=== PATIENT | female | born 1985 | race Caucasian/White ===

== ENCOUNTER 2017-04-26 11:19 | Emergency (ER) | payer OTHER ==
[2017-04-26] MEDS: LORAZEPAM 0.5 MG TAB PO (12:46)
== END 2017-04-26 13:34 | disposition home or self-care (01) ==
LOC: FTE 11:19
DX: F41.0 Panic disorder [episodic paroxysmal anxiety] (principal); R07.9 Chest pain, unspecified
CPT/HCPCS: 71045; 93005; 99284-25

== ENCOUNTER 2017-09-12 16:56 | Emergency (ER) | payer OTHER ==
[2017-09-12] MEDS: LORAZEPAM 1 MG TAB PO (19:00)
== END 2017-09-12 19:25 | disposition left against medical advice (07) ==
LOC: FTE 16:56
DX: F41.9 Anxiety disorder, unspecified (principal)
CPT/HCPCS: 99283; Z7502

== ENCOUNTER 2017-11-12 10:49 | Emergency (ER) | payer OTHER ==
[2017-11-12] MEDS: IBUPROFEN 600 MG TAB PO (11:37)
[2017-11-12 11:52] LABS: ADD MAN DIFF? NO
[2017-11-12 11:53] LABS: ADD UMIC NO; UR ASCORBIC ACID 20 mg/dL (NEGATIVE); UR BILIRUBIN (Dip) NEGATIVE (NEGATIVE); UR BLOOD (Dip) NEGATIVE (NEGATIVE); UR CLARITY CLEAR (CLEAR); UR COLOR YELLOW (YELLOW); UR GLUCOSE (Dip) NEGATIVE (NEGATIVE); UR KETONES (Dip) NEGATIVE (NEGATIVE); UR LEUKOCYTE ESTERASE (Dip) NEGATIVE Leu/ul (NEGATIVE); UR NITRITE (Dip) NEGATIVE (NEGATIVE); UR SPECIFIC GRAVITY (Dip) 1.012 (1.003-1.030); UR TOTAL PROTEIN (Dip) NEGATIVE (NEGATIVE); UR UROBILINOGEN (Dip) NEGATIVE (NEGATIVE)
[2017-11-12 11:54] LABS: WHITE BLOOD COUNT 8.6 10^3/ul (4.8-10.8)
[2017-11-12 11:54] LABS: BASOPHIL # 0.1 10^3/ul (0.0-0.1); BASOPHILS % 0.8 % (0.0-2.0); EOSINOPHILS # 0.4 10^3/ul (0.0-0.5); EOSINOPHILS % 4.1 % (0.0-7.0); HEMATOCRIT 45.1 % (37.0-47.0); HEMOGLOBIN 14.7 g/dl (12.0-16.0); LYMPHOCYTES % 23.4 % (15.0-51.0); MEAN CORPUSCULAR HEMOGLOBIN 28.1 pg (29.0-33.0); MEAN CORPUSCULAR HGB CONC 32.6 g/dl (32.0-37.0); MEAN CORPUSCULAR VOLUME 86.1 fl (82.0-101.0); MEAN PLATELET VOLUME 9.4 fl (7.4-10.4); MONOCYTE # 0.5 10^3/ul (0.3-0.9); MONOCYTES % 6.2 % (0.0-11.0); NEUTROPHIL # 5.6 10^3/ul (1.6-7.5); PLATELET COUNT 344 10^3/UL (140-415); RED BLOOD COUNT 5.24 10^6/ul (4.20-5.40); RED CELL DISTRIBUTION WIDTH 12.9 % (11.5-14.5)
[2017-11-12 12:15] LABS: ALANINE AMINOTRANSFERASE 93 IU/L (13-69); ALBUMIN 4.2 g/dl (3.3-4.9); ALBUMIN/GLOBULIN RATIO 1.27; ALKALINE PHOSPHATASE 66 IU/L (42-121); ANION GAP 11 (8-16); ASPARTATE AMINO TRANSFERASE 66 IU/L (15-46); BILIRUBIN,INDIRECT 0.1 mg/dl (0-1.1); BILIRUBIN,TOTAL 0.1 mg/dl (0.2-1.3); BLOOD UREA NITROGEN 15 mg/dl (7-20); CALCIUM 9.4 mg/dl (8.4-10.2); CARBON DIOXIDE 28 mmol/L (21-31); CHLORIDE 105 mmol/L (97-110); CREATININE 0.55 mg/dl (0.44-1.00); GLUCOSE 92 mg/dl (70-220); LIPASE 127 U/L (23-300); POTASSIUM 4.1 mmol/L (3.5-5.1); SODIUM 140 mmol/L (135-144); TOTAL PROTEIN 7.5 g/dl (6.1-8.1)
== END 2017-11-12 13:26 | disposition home or self-care (01) ==
LOC: FTE 10:49
DX: R10.12 Left upper quadrant pain (principal); R42 Dizziness and giddiness; R30.0 Dysuria; R07.9 Chest pain, unspecified; R35.0 Frequency of micturition; R10.2 Pelvic and perineal pain
CPT/HCPCS: 36415; 71045; 76830; 76856; 80053; 81003; 81025; 83690; 85025; 93005; 99285-25

== ENCOUNTER 2018-04-25 23:51 | Emergency (ER) | payer SELFPAY, OTHER | END 2018-04-26 05:11 | disposition home or self-care (01) | LOC: FTE 23:51 | DX: S00.12XA Contusion of left eyelid and periocular area, initial encounter (principal); Y09 Assault by unspecified means | CPT/HCPCS: 99283 ==